=== PATIENT | male | born 1955 | race Caucasian/White ===

== ENCOUNTER 2021-04-06 16:12 | Inpatient (IN) | payer OTHER ==
[2021-04-06] MEDS ORDERED: Cefepime 2 GM VIAL ONE (16:40)
[2021-04-06] MEDS ORDERED: Vancomycin HCl 500 MG VIAL ONE (16:41)
[2021-04-06 17:09] LABS: #Basophils 0.1 10x3/uL (0.0-0.2); #Monocytes 1.6 10x3/uL (0.0-1.1); #Neutrophils 16.6 10x3/uL (1.5-8.4); %Basophils 0.3 % (0.0-2.0); %Eosinophils 0.1 % (0.0-6.0); %Lymphocytes 4.7 % (18.0-47.0); %Monocytes 8.1 % (0.0-10.0); %Neutrophils 85.6 % (40.0-75.0); Hemoglobin 12.2 g/dL (13.5-17.5); Mean Corpuscular HGB CONC 33.3 g/dL (32.0-36.0); Mean Corpuscular Hemoglobin 29.5 pg (27.0-33.0); Mean Corpuscular Volume 88.4 fl (81.2-95.1); Platelet Count 204 10x3/uL (150-450); RBC Distribution Width 12.5 % (11.5-14.5); Red Blood Cell (RBC) Count 4.14 10x6/uL (4.32-5.72); White Blood Cell (WBC) Count 19.4 10x3/uL (3.5-10.5)
[2021-04-06 17:32] LABS: ALT (SGPT) 17 U/L (8-55); AST (SGOT) 27 U/L (5-34); Albumin 3.3 g/dL (3.4-4.8); Alkaline Phosphatase 58 U/L (40-110); Anion Gap 13 mmol/L (10-20); BUN (Urea Nitrogen) 25 mg/dL (8.4-25.7); Bilirubin, Total 3.1 mg/dL (0.2-1.2); Calc. Creatinine Clearance 0 mL/min (70-130); Calcium 8.6 mg/dL (7.8-10.44); Carbon Dioxide 19 mmol/L (23-31); Chloride 105 mmol/L (98-107); Globulin 2.8 g/dL (2.4-3.5); Glucose 114 mg/dL (80-115); Potassium 3.4 mmol/L (3.5-5.1); Protein, Total 6.1 g/dL (5.8-8.1); Sodium 134 mmol/L (136-145)
[2021-04-07] MEDS ORDERED: Calcium Carbonate 500 MG ChewTAB PO PRN (00:37)
[2021-04-07] MEDS ORDERED: Ondansetron PF 4 MG/2 ML Vial IVP PRN (00:37)
[2021-04-07] MEDS ORDERED: HYDROcodone/Acetaminophen 5/325 mg Tablet PO PRN (00:37)
[2021-04-07] MEDS ORDERED: Senokot S 8.6-50 MG TAB PO PRN (00:37)
[2021-04-07] MEDS ORDERED: Sodium Chloride 0.9% 1,000 ML IV SCH ×2 (00:45)
[2021-04-07] MEDS ORDERED: Morphine 2 MG/ML VIAL SLOW IVP PRN (00:56)
[2021-04-07] MEDS ORDERED: Potassium Chloride 20 MEQ TAB PO SCH (01:00)
[2021-04-07 01:35] LABS: Bilirubin Neg (Negative); Blood, Urine Negative (Negative); Clarity Clear (Clear); Glucose, Urine (Dipstick) >=1000 mg/dL (Negative); Ketone, Urine 5 mg/dL (Negative); Leukocyte Negative (Negative); Nitrite Negative (Negative); Protein, Urine (Dipstick) Negative (Neg-Trace); Specific Gravity, Urine 1.015 (1.002-1.036)
[2021-04-07 01:56] LABS: SARS-CoV-2 NAA Rapid Test Not Detected (NotDetected)
[2021-04-07] MEDS ORDERED: Potassium Chloride 20 MEQ TAB ONE (02:40)
[2021-04-07 04:55] LABS: #Monocytes 1.7 10x3/uL (0.0-1.1); #Neutrophils 13.9 10x3/uL (1.5-8.4); %Basophils 0.2 % (0.0-2.0); %Eosinophils 0.2 % (0.0-6.0); %Lymphocytes 7.3 % (18.0-47.0); %Monocytes 10.2 % (0.0-10.0); %Neutrophils 81.2 % (40.0-75.0); Hemoglobin 12.4 g/dL (13.5-17.5); Mean Corpuscular HGB CONC 33.2 g/dL (32.0-36.0); Mean Corpuscular Hemoglobin 28.9 pg (27.0-33.0); Mean Corpuscular Volume 87.2 fl (81.2-95.1); Platelet Count 189 10x3/uL (150-450); RBC Distribution Width 12.5 % (11.5-14.5); Red Blood Cell (RBC) Count 4.29 10x6/uL (4.32-5.72); White Blood Cell (WBC) Count 17.1 10x3/uL (3.5-10.5)
[2021-04-07 05:01] LABS: Anion Gap 11 mmol/L (10-20); BUN (Urea Nitrogen) 23 mg/dL (8.4-25.7); Calc. Creatinine Clearance 0 mL/min (70-130); Carbon Dioxide 21 mmol/L (23-31); Chloride 106 mmol/L (98-107); Sodium 134 mmol/L (136-145)
[2021-04-07 05:02] LABS: Calcium 8.6 mg/dL (7.8-10.44); Glucose 103 mg/dL (80-115)
[2021-04-07] MEDS ORDERED: Cefepime 1 GM VIAL ONE (08:06)
[2021-04-07] MEDS ORDERED: Enoxaparin Sodium 40 MG/0.4 ML SYRINGE ONE (08:07)
[2021-04-07] MEDS: Enoxaparin Sodium 40 MG/0.4 ML SYRINGE SC SCH (08:45)
[2021-04-07] MEDS: Cefepime 1 GM in Sodium Chloride 0.9% 100 ML IVPB SCH ×2 (08:45→21:16)
[2021-04-07] MEDS ORDERED: Lisinopril/Hydrochlorothiazide 20 mg/12.5 mg Tablet PO SCH (09:00)
[2021-04-07] MEDS ORDERED: Vancomycin HCl 1 GM in Sodium Chloride 0.9% 250 ML 250 ML IVPB SCH (12:00)
[2021-04-07] MEDS: Vancomycin HCl 1 GM in Sodium Chloride 0.9% 250 ML 250 ML IVPB SCH ×2 (12:00→23:50)
[2021-04-07] MEDS ORDERED: Acetaminophen 325 MG TAB ONE (17:34)
[2021-04-07] MEDS: Acetaminophen 325 MG TAB PO PRN (17:34)
[2021-04-07] MEDS: Atorvastatin Calcium 10 MG TAB PO SCH (21:16)
[2021-04-07] MEDS ORDERED: Sodium Chloride 0.9% 250 ML 250 ML ONE (23:40)
[2021-04-08 04:37] LABS: Anion Gap 11 mmol/L (10-20); BUN (Urea Nitrogen) 21 mg/dL (8.4-25.7); Calc. Creatinine Clearance 117 mL/min (70-130); Calcium 8.3 mg/dL (7.8-10.44); Carbon Dioxide 20 mmol/L (23-31); Chloride 109 mmol/L (98-107); Glucose 106 mg/dL (80-115); Potassium 3.8 mmol/L (3.5-5.1); Sodium 136 mmol/L (136-145)
[2021-04-08 04:42] LABS: #Eosinphils 0.5 10x3/uL (0.0-0.5); #Monocytes 1.2 10x3/uL (0.0-1.1); #Neutrophils 9.6 10x3/uL (1.5-8.4); %Basophils 0.3 % (0.0-2.0); %Eosinophils 3.6 % (0.0-6.0); %Lymphocytes 10.9 % (18.0-47.0); %Monocytes 9.3 % (0.0-10.0); %Neutrophils 75.4 % (40.0-75.0); Hemoglobin 11.1 g/dL (13.5-17.5); Mean Corpuscular HGB CONC 33.8 g/dL (32.0-36.0); Mean Corpuscular Volume 88.6 fl (81.2-95.1); Mean Platelet Volume 10.8 fl (7.4-10.4); Platelet Count 165 10x3/uL (150-450); RBC Distribution Width 12.6 % (11.5-14.5); White Blood Cell (WBC) Count 12.7 10x3/uL (3.5-10.5)
[2021-04-08] MEDS: Benzonatate 100 MG CAP PO PRN ×4 (05:45→22:58)
[2021-04-08 08:12] LABS: Bilirubin Neg (Negative); Blood, Urine Negative (Negative); Clarity Clear (Clear); Glucose, Urine (Dipstick) Normal (Negative); Ketone, Urine Negative (Negative); Leukocyte Negative (Negative); Nitrite Negative (Negative); Protein, Urine (Dipstick) 15 mg/dl (Neg-Trace); Urobilinogen Normal mg/dL (Less than 2)
[2021-04-08 08:20] LABS: Bacteria/HPF None Seen HPF (None Seen); RBC/HPF 0-3 HPF (0-3); Squamous Epithelial None Seen HPF (0-3); WBC/HPF 0-3 HPF (0-3)
[2021-04-08] MEDS: Enoxaparin Sodium 40 MG/0.4 ML SYRINGE SC SCH (10:07)
[2021-04-08] MEDS: Cefepime 1 GM in Sodium Chloride 0.9% 100 ML IVPB SCH ×2 (10:07→22:37)
[2021-04-08 11:18] LABS: Vancomycin, Trough 8.5 ug/mL
[2021-04-08] MEDS: Vancomycin HCl 1 GM in Sodium Chloride 0.9% 250 ML 250 ML IVPB SCH (12:39)
[2021-04-08] MEDS: Carvedilol 12.5 MG TAB PO SCH (18:12)
[2021-04-08] MEDS: Atorvastatin Calcium 10 MG TAB PO SCH (22:37)
[2021-04-08] MEDS: VANCOMYCIN 1.25 GM/250 ML BAG 1.25 GM in Premix Bag 1 BAG IVPB SCH (22:57)
[2021-04-09] MEDS: Acetaminophen 325 MG TAB PO PRN (00:55)
[2021-04-09 04:45] LABS: #Eosinphils 0.3 10x3/uL (0.0-0.5); #Monocytes 1.1 10x3/uL (0.0-1.1); %Basophils 0.3 % (0.0-2.0); %Eosinophils 2.5 % (0.0-6.0); %Lymphocytes 10.5 % (18.0-47.0); %Neutrophils 77.2 % (40.0-75.0); Hemoglobin 11.2 g/dL (13.5-17.5); Mean Corpuscular HGB CONC 32.5 g/dL (32.0-36.0); Mean Corpuscular Hemoglobin 28.4 pg (27.0-33.0); Mean Corpuscular Volume 87.6 fl (81.2-95.1); Mean Platelet Volume 10.6 fl (7.4-10.4); Platelet Count 218 10x3/uL (150-450); RBC Distribution Width 12.3 % (11.5-14.5); Red Blood Cell (RBC) Count 3.94 10x6/uL (4.32-5.72); White Blood Cell (WBC) Count 11.7 10x3/uL (3.5-10.5)
[2021-04-09 04:57] LABS: Anion Gap 13 mmol/L (10-20); BUN (Urea Nitrogen) 15 mg/dL (8.4-25.7); Calc. Creatinine Clearance 113 mL/min (70-130); Calcium 8.2 mg/dL (7.8-10.44); Carbon Dioxide 20 mmol/L (23-31); Chloride 108 mmol/L (98-107); Glucose 109 mg/dL (80-115); Potassium 3.5 mmol/L (3.5-5.1); Sodium 137 mmol/L (136-145)
[2021-04-09] MEDS: Carvedilol 12.5 MG TAB PO SCH ×3 (06:55→17:57)
[2021-04-09] MEDS: Cefepime 1 GM in Sodium Chloride 0.9% 100 ML IVPB SCH ×2 (10:21→20:55)
[2021-04-09] MEDS: Benzonatate 100 MG CAP PO PRN ×2 (10:21→17:57)
[2021-04-09] MEDS: Enoxaparin Sodium 40 MG/0.4 ML SYRINGE SC SCH (10:21)
[2021-04-09] MEDS: VANCOMYCIN 1.25 GM/250 ML BAG 1.25 GM in Premix Bag 1 BAG IVPB SCH (13:02)
[2021-04-09] MEDS: Atorvastatin Calcium 10 MG TAB PO SCH (20:47)
[2021-04-10] MEDS: VANCOMYCIN 1.25 GM/250 ML BAG 1.25 GM in Premix Bag 1 BAG IVPB SCH ×2 (00:50→13:37)
[2021-04-10 04:42] LABS: #Basophils 0.1 10x3/uL (0.0-0.2); #Eosinphils 0.3 10x3/uL (0.0-0.5); #Monocytes 1.1 10x3/uL (0.0-1.1); #Neutrophils 8.4 10x3/uL (1.5-8.4); %Basophils 0.4 % (0.0-2.0); %Lymphocytes 12.7 % (18.0-47.0); %Monocytes 9.8 % (0.0-10.0); %Neutrophils 73.6 % (40.0-75.0); Hemoglobin 11.3 g/dL (13.5-17.5); Mean Corpuscular HGB CONC 33.6 g/dL (32.0-36.0); Mean Corpuscular Hemoglobin 29.1 pg (27.0-33.0); Mean Corpuscular Volume 86.6 fl (81.2-95.1); Platelet Count 225 10x3/uL (150-450); RBC Distribution Width 12.4 % (11.5-14.5); Red Blood Cell (RBC) Count 3.88 10x6/uL (4.32-5.72); White Blood Cell (WBC) Count 11.4 10x3/uL (3.5-10.5)
[2021-04-10 04:51] LABS: Anion Gap 13 mmol/L (10-20); BUN (Urea Nitrogen) 13 mg/dL (8.4-25.7); Calc. Creatinine Clearance 127 mL/min (70-130); Calcium 8.5 mg/dL (7.8-10.44); Carbon Dioxide 21 mmol/L (23-31); Chloride 107 mmol/L (98-107); Glucose 108 mg/dL (80-115); Potassium 3.7 mmol/L (3.5-5.1); Sodium 137 mmol/L (136-145)
[2021-04-10] MEDS: Carvedilol 12.5 MG TAB PO SCH ×3 (08:27→16:33)
[2021-04-10] MEDS: Cefepime 1 GM in Sodium Chloride 0.9% 100 ML IVPB SCH ×2 (08:27→21:33)
[2021-04-10] MEDS: Enoxaparin Sodium 40 MG/0.4 ML SYRINGE SC SCH (08:27)
[2021-04-10 11:35] LABS: Vancomycin, Trough 14.2 ug/mL
[2021-04-10] MEDS ORDERED: Cefepime 1 GM VIAL ONE (20:43)
[2021-04-10] MEDS: Atorvastatin Calcium 10 MG TAB PO SCH (21:33)
[2021-04-11] MEDS: VANCOMYCIN 1.25 GM/250 ML BAG 1.25 GM in Premix Bag 1 BAG IVPB SCH ×2 (02:11→12:14)
[2021-04-11 04:07] LABS: Anion Gap 12 mmol/L (10-20); BUN (Urea Nitrogen) 11 mg/dL (8.4-25.7); Calc. Creatinine Clearance 120 mL/min (70-130); Calcium 8.4 mg/dL (7.8-10.44); Carbon Dioxide 22 mmol/L (23-31); Chloride 106 mmol/L (98-107); Glucose 111 mg/dL (80-115); Potassium 3.8 mmol/L (3.5-5.1); Sodium 136 mmol/L (136-145)
[2021-04-11 04:09] LABS: #Eosinphils 0.4 10x3/uL (0.0-0.5); #Monocytes 0.8 10x3/uL (0.0-1.1); #Neutrophils 6.2 10x3/uL (1.5-8.4); %Basophils 0.3 % (0.0-2.0); %Eosinophils 4.6 % (0.0-6.0); %Lymphocytes 15.5 % (18.0-47.0); %Monocytes 9.2 % (0.0-10.0); %Neutrophils 69.7 % (40.0-75.0); Hemoglobin 11.5 g/dL (13.5-17.5); Mean Corpuscular HGB CONC 33.1 g/dL (32.0-36.0); Mean Corpuscular Hemoglobin 29.3 pg (27.0-33.0); Mean Corpuscular Volume 88.3 fl (81.2-95.1); Mean Platelet Volume 9.9 fl (7.4-10.4); Platelet Count 255 10x3/uL (150-450); RBC Distribution Width 12.4 % (11.5-14.5); Red Blood Cell (RBC) Count 3.93 10x6/uL (4.32-5.72); White Blood Cell (WBC) Count 8.9 10x3/uL (3.5-10.5)
[2021-04-11] MEDS: Carvedilol 12.5 MG TAB PO SCH ×3 (08:47→17:34)
[2021-04-11] MEDS: Cefepime 1 GM in Sodium Chloride 0.9% 100 ML IVPB SCH (08:47)
[2021-04-11] MEDS: Enoxaparin Sodium 40 MG/0.4 ML SYRINGE SC SCH (08:47)
== END 2021-04-11 19:10 | disposition home or self-care (01) | DRG 871 ==
LOC: CSHERS 16:12 → CSHERHOLD 04-07 02:03 → CSHTELE 04-07 17:57
PROVIDERS: ADMIT Internal Medicine; ATTEND Internal Medicine
DX: A41.89 Other specified sepsis (principal); U07.1 COVID-19; L03.317 Cellulitis of buttock; N17.9 Acute kidney failure, unspecified; Z20.822 Contact with and (suspected) exposure to COVID-19; E87.6 Hypokalemia; E86.0 Dehydration; I10 Essential (primary) hypertension; I95.1 Orthostatic hypotension; E78.2 Mixed hyperlipidemia; Z79.899 Other long term (current) drug therapy
CPT/HCPCS: 36415; 71045; 74177; 80048; 80053; 80202; 81001; 81003; 83605; 85025; 87040; 87086; 93005; 93010; 96365; 96366; 96375; J0692; J1650; J3370; J3490; J7050; U0002